=== PATIENT | female | born 1945 | race African-American/Black ===

== ENCOUNTER 2016-11-04 13:16 | Emergency (ER) | payer MEDICARE, OTHER ==
[~2016-11-04] VITALS: Ht 160 cm; Wt 76.0 kg
[2016-11-04] MEDS ORDERED: IBUPROFEN 600MG TABLET PO ONE (14:15)
[2016-11-04 16:02] VITALS: BP 118/62
== END 2016-11-04 17:00 | disposition home or self-care (01) ==
LOC: ER 13:59
DX: M54.2 Cervicalgia (principal)
CPT/HCPCS: 72040; 99284

== ENCOUNTER 2018-12-23 11:24 | Emergency (ER) | payer MEDICARE, OTHER ==
[~2018-12-23] VITALS: Ht 167.6 cm; Wt 90.0 kg
[2018-12-23 12:40] LABS: BASOPHILS % 0.3 % (0.0-2.0); EOSINOPHILS % 0.5 % (0.0-5.0); HEMATOCRIT. 32.5 % (36.0-48.0); HEMOGLOBIN. 10.9 g/dL (12.0-16.0); LYMPHOCYTES % 32.2 % (20.0-50.0); MEAN CORPUSCULAR HEMOGLOBIN 29.5 pg (28.0-32.0); MEAN CORPUSCULAR VOLUME 87.6 fL (81.0-99.0); MEAN PLATELET VOLUME 7.3 fl (7.4-10.4); MONOCYTES % 6.5 % (2.0-8.0); NEUTROPHILS % 60.5 % (40.0-76.0); PLATELET 204 x1000/uL (130-400); RED BLOOD CELL COUNT 3.71 mill/uL (4.2-5.4); RED CELL DISTRIBUTION WIDTH 13.2 % (11.6-14.6)
[2018-12-23 12:49] LABS: CHLORIDE 106 mEq/L (98-107)
[2018-12-23] MEDS ORDERED: NA PHOS,M-B/NA PHOS,DI-BA ENEMA 118ML PR STA (14:05)
[2018-12-23] MEDS ORDERED: SORBITOL 70% SOLN 30ML PO STA (14:05)
[2018-12-23 15:37] LABS: CLARITY URINE CLEAR (CLEAR); COLOR URINE YELLOW (YELLOW); KETONES URINE NEGATIVE (NEGATIVE); LEUKOCYTE ESTERASE URINE NEGATIVE (NEGATIVE); NITRITE URINE NEGATIVE (NEGATIVE); OCCULT BLOOD URINE NEGATIVE (NEGATIVE); PROTEIN URINE NEGATIVE (NEGATIVE); SPECIFIC GRAVITY URINE 1.005 (1.005-1.030); UROBILINOGEN URINE 0.2 E.U./dL (0.2-1.0)
[2018-12-23 19:40] VITALS: BP 121/61
== END 2018-12-23 20:08 | disposition home or self-care (01) ==
LOC: ER 12:22
DX: K59.00 Constipation, unspecified (principal)
CPT/HCPCS: 36415; 74176; 81003; 84484; 99284